=== PATIENT | male | born 1955 | race Caucasian/White ===

== ENCOUNTER 2016-06-06 11:31 | Day surgery (SDC) | payer BC ==
[~2016-06-06] VITALS: Ht 180.3 cm; Wt 90.7 kg
[~2016-06-06 11:31] MED LIST: CARVEDILOL25 MG PO; LIPITOR20 MG PO; LISINOPRIL40 MG PO; PREVACID30 MG PO; XARELTO10 MG PO; ZESTRIL10 MG PO; [UNRECOGNIZED DRUG - REMARK]
== END 2016-06-06 15:40 | disposition home or self-care (01) ==
LOC: CATH 11:31
DX: Z45.02 Encounter for adjustment and management of automatic implantable cardiac defibrillator (principal); I48.0 Paroxysmal atrial fibrillation; I42.9 Cardiomyopathy, unspecified; I10 Essential (primary) hypertension; E78.5 Hyperlipidemia, unspecified; I50.9 Heart failure, unspecified
CPT/HCPCS: C1882; J0690; J1200; J2250; J3010; S0020